=== PATIENT | male | born 1965 ===

== ENCOUNTER 2019-08-08 08:20 | Emergency (ER) | payer BC, OTHER ==
[2019-08-08] MEDS ORDERED: Sodium Chloride 0.9% 1,000 ML IV ONE (08:28)
[2019-08-08] MEDS ORDERED: Ondansetron 4 MG/2 ML SDV IVPUSH ONE (08:28)
[2019-08-08] MEDS ORDERED: Ketorolac 15 MG/ML SDV IVPUSH ONE (08:29)
[2019-08-08] MEDS ORDERED: Ondansetron 4 MG/2 ML SDV ONE (08:30)
[2019-08-08] MEDS ORDERED: Ketorolac 15 MG/ML SDV ONE (08:30)
--- NOTE | 2019-08-08 09:14 | CT ---
CT abdomen and pelvis Technique: Multiple axial sections were obtained from above the dome of the diaphragm inferiorly through the pubic symphysis. Intravenous and oral contrast not utilized. Study has been performed as a ureteral stone protocol. Findings: 5 mm obstructing stone is noted within the distal right ureter close to the UVJ. This stone causes proximal ureteral dilatation as well as dilatation of the collecting system of the right kidney. No additional ureteral calculi are seen. 2 small nonobstructing stones are seen within the left kidney measuring less than 5 mm. No other abnormal calcification are seen within the kidneys. Other findings: Visualized lung bases show nothing acute. Liver contains no focal parenchymal abnormality. Spleen appears within normal limits. Small hiatal hernia is noted. Adrenal glands show no nodule. Pancreas is within normal limits. Gallbladder contains no calcified gallstones. Aorta shows atherosclerotic change without aneurysm. No retroperitoneal adenopathy or mesenteric abnormalities are seen. Appendix is visualized and is normal in size. No pelvic mass or adenopathy is seen. No free fluid or inflammatory change is identified. Fat-containing umbilical hernia is incidentally noted. Mild diverticulosis is seen within the sigmoid colon without findings of diverticulitis. Bone window settings were reviewed which shows mild disc space narrowing scattered within the spine as well as scattered endplate osteophytes. Impression: 1. 5 mm obstructing stone within the distal right ureter close to the UVJ. This causes proximal hydronephrosis. 2. 2 small nonobstructing calculi within the left kidney. 3. Other findings believed to be incidental and nonacute as described above. Diagnostic code #3 This report was dictated in [place] Standard Time
[2019-08-08 09:23] LABS: CARBON DIOXIDE,CO2 28.2 mmol/L (21.0-32.0); POTASSIUM,K 3.6 mmol/L (3.5-5.1)
--- NOTE | 2019-08-08 09:40 | US ---
Testicular real-time images of the testicles were obtained. Comparison: No prior testicles show a homogeneous ultrasound appearance. Findings: No intratesticular abnormality is appreciated. Blood flow is noted within both testicles. Minimal hydroceles are seen on both sides. Epididymis appear normal. Measurements: Right testicle: 4.2 x 2.7 x 3.2 cm Left testicle: 4.1 x 2.1 x 2.8 cm Impression: 1. Small bilateral hydroceles. 2. Testicular ultrasound is otherwise unremarkable. Diagnostic code #2 This report was dictated in [place] Standard Time
--- NOTE | 2019-08-08 10:11 | EDM.PDOC ---
ED HPI GENERAL MEDICAL PROBLEM - General Chief Complaint: Flank Pain Stated Complaint: POSSIBLE KIDNEY STONE Time Seen by Provider: 08/08/19 08:29 Source of Information: Reports: Patient History Limitations: Reports: No Limitations - History of Present Illness INITIAL COMMENTS - FREE TEXT/NARRATIVE: 53-year-old gentleman history of nephrolithiasis presented to ER, right-sided flank pain radiating to the groin area. Started night of presentation to ER. No fever. No hematuria. Has been vomiting. No diarrhea no other associated symptoms. tried Motrin which did not help. Has had similar episodes in the past where he spontaneously passes a small stone but has not followed up formally. Duration: Hour(s): right flank Pain Score (Numeric/FACES): 10 - Related Data Allergies Allergy/AdvReac Type Severity Reaction Status Date / Time No Known Allergies Allergy Verified 08/08/19 08:36 Home Meds: Home Meds Ibuprofen 600 mg PO Q6HR PRN 10 Days #60 tablet 08/08/19 [Rx] Tamsulosin [Tamsulosin 24 Hr] 0.4 mg PO DAILY 5 Days #5 cap.er 08/08/19 [Rx] oxyCODONE HCl/Acetaminophen [Percocet 5-325 mg Tablet] 1 each PO Q6HR PRN 1 Days #6 tablet 08/08/19 [Rx] Past Medical History Cardiovascular History: Reports: Hypertension - Infectious Disease History Infectious Disease History: Reports: Chicken Pox - Past Surgical History HEENT Surgical History: Reports: Naso-Sinus Surgery Musculoskeletal Surgical History: Reports: Other (See Below) Other Musculoskeletal Surgeries/Procedures:: finger surgery Social & Family History - Family History Family Medical History: Noncontributory - Tobacco Use Smoking Status *Q: Never Smoker - Recreational Drug Use Recreational Drug Use: No ED ROS GENERAL - Review of Systems Review Of Systems: See Below Constitutional: Reports: No Symptoms HEENT: Reports: No Symptoms Respiratory: Reports: No Symptoms Cardiovascular: Reports: No Symptoms Endocrine: Reports: No Symptoms GI/Abdominal: Reports: Vomiting : Reports: Flank Pain, Pain Musculoskeletal: Reports: No Symptoms Skin: Reports: No Symptoms Neurological: Reports: No Symptoms Psychiatric: Reports: No Symptoms Hematologic/Lymphatic: Reports: No Symptoms Immunologic: Reports: No Symptoms ED EXAM, RENAL/ - Physical Exam Exam: See Below Exam Limited By: No Limitations General Appearance: Alert, WD/WN, No Apparent Distress Ears: Normal External Exam Nose: Normal Inspection Head: Atraumatic Neck: Normal Inspection Respiratory/Chest: No Respiratory Distress, Lungs Clear Cardiovascular: Normal Peripheral Pulses, Regular Rate, Rhythm GI/Abdominal: Soft, Non-Tender, Other (Right flank tenderness) (Male) Exam: No Hernia, Cremasteric Reflex. No: Testicular Mass, Testicular Tenderness (L), Testicular Tenderness (R) Back Exam: Normal Inspection, CVA Tenderness (R) Extremities: Normal Inspection Neurological: Alert, Oriented, Normal Gait Psychiatric: Normal Affect Skin Exam: Warm Course - Vital Signs Last Recorded V/S: Last Vital Signs Temp 96.9 F 08/08/19 10:24 Pulse 66 08/08/19 10:24 Resp 18 08/08/19 10:24 BP 169/94 H 08/08/19 10:24 Pulse Ox 96 08/08/19 10:24 - Orders/Labs/Meds Orders: Active Orders 24 hr Category Date Time Status Scrotal Duplex Ltd [US] Routine Exams 08/08/19 Taken Labs: Laboratory Tests 08/08/19 08/08/19 08/08/19 Range/Units 08:26 08:26 08:30 WBC 13.56 H (4.0-11.0) K/uL RBC 5.15 (4.50-5.90) M/uL Hgb 15.7 (13.0-17.0) g/dL Hct 46.4 (38.0-50.0) % MCV 90.1 (80.0-98.0) fL MCH 30.5 (27.0-32.0) pg MCHC 33.8 (31.0-37.0) g/dL RDW Std Deviation 42.0 (28.0-62.0) fl RDW Coeff of Mauricio 13 (11.0-15.0) % Plt Count 251 (150-400) K/uL MPV 9.10 (7.40-12.00) fL Neut % (Auto) 75.7 (48.0-80.0) % Lymph % (Auto) 17.0 (16.0-40.0) % Vance % (Auto) 6.3 (0.0-15.0) % Eos % (Auto) 0.6 (0.0-7.0) % Baso % (Auto) 0.4 (0.0-1.5) % Neut # (Auto) 10.3 H (1.4-5.7) K/uL Lymph # (Auto) 2.3 (0.6-2.4) K/uL Vance # (Auto) 0.9 H (0.0-0.8) K/uL Eos # (Auto) 0.1 (0.0-0.7) K/uL Baso # (Auto) 0.1 (0.0-0.1) K/uL Nucleated RBC % 0.0 /100WBC Nucleated RBCs # 0 K/uL Sodium 142 (136-148) mmol/L Potassium 3.6 (3.5-5.1) mmol/L Chloride 104 (98-107) mmol/L Carbon Dioxide 28.2 (21.0-32.0) mmol/L BUN 16 (7.0-18.0) mg/dL Creatinine 1.4 H (0.8-1.3) mg/dL Est Cr Clr Drug Dosing 66.08 mL/min Estimated GFR (MDRD) 53.4 ml/min Glucose 127 H (74-106) mg/dL Calcium 8.7 (8.5-10.1) mg/dL Total Bilirubin 0.6 (0.2-1.0) mg/dL AST 21 (15-37) IU/L ALT 35 (14-63) IU/L Alkaline Phosphatase 67 (46-116) U/L Total Protein 7.5 (6.4-8.2) g/dL Albumin 3.8 (3.4-5.0) g/dL Globulin 3.7 (2.6-4.0) g/dL Albumin/Globulin Ratio 1.0 (0.9-1.6) Lipase 130 (73-393) U/L Urine Color YELLOW Urine Appearance CLEAR Urine pH 6.0 (5.0-8.0) Ur Specific [place] >= 1.030 (1.001-1.035) Urine Protein TRACE H (NEGATIVE) mg/dL Urine Glucose (UA) NEGATIVE (NEGATIVE) mg/dL Urine Ketones NEGATIVE (NEGATIVE) mg/dL Urine Occult Blood LARGE H (NEGATIVE) Urine Nitrite NEGATIVE (NEGATIVE) Urine Bilirubin NEGATIVE (NEGATIVE) Urine Urobilinogen 0.2 (<2.0) EU/dL Ur Leukocyte Esterase NEGATIVE (NEGATIVE) Urine RBC 5-10 (0-2/HPF) Urine WBC 0-1 (0-5/HPF) Ur Epithelial Cells RARE (NONE-FEW) Urine Bacteria RARE (NEGATIVE) Urine Mucus LIGHT (NONE-MOD) Meds: Medications Discontinued Medications Generic Name Dose Route Start Last Admin Trade Name Freq PRN Reason Stop Dose Admin Sodium Chloride 1,000 mls @ 999 mls/hr 08/08/19 08:28 08/08/19 09:28 Normal Saline IV 08/08/19 09:28 999 mls/hr .Bolus ONE Administration Ketorolac Tromethamine 15 mg 08/08/19 08:29 08/08/19 08:30 Toradol IVPUSH 08/08/19 08:30 15 mg STAT ONE Administration Ketorolac Tromethamine Confirm 08/08/19 08:30 08/08/19 08:45 Toradol Administered 08/08/19 08:31 Not Given Dose 15 mg .ROUTE .STK-MED ONE Ondansetron HCl 4 mg 08/08/19 08:28 08/08/19 09:29 Zofran IVPUSH 08/08/19 08:29 4 mg ONETIME ONE Administration Ondansetron HCl Confirm 08/08/19 08:30 08/08/19 08:45 Zofran Administered 08/08/19 08:31 Not Given Dose 4 mg .ROUTE .STK-MED ONE - Re-Assessments/Exams Free Text/Narrative Re-Assessment/Exam: 08/08/19 10:09 Patient is afebrile nontoxic appearing. After medications improved markedly. Pain resolved. He has has not vomited. CAT scan showed a 5 mm stone at the UVJ junction. Findings were discussed with Dr. Castro from , patient will go to his clinic tomorrow afternoon. Return precautions were discussed with the patient, told him to come back to ER if he develops fever vomiting intractable pain or any concerns. UA did not show any signs of gross infection, and he is nontoxic-appearing. Departure - Departure Time of Disposition: 10:30 Disposition: Home, Self-Care 01 Clinical Impression: Nephrolithiasis - Discharge Information *PRESCRIPTION DRUG MONITORING PROGRAM REVIEWED*: Not Applicable *COPY OF PRESCRIPTION DRUG MONITORING REPORT IN PATIENT JASON: Not Applicable Prescriptions: Ibuprofen 600 mg PO Q6HR PRN 10 Days #60 tablet PRN Reason: Pain oxyCODONE HCl/Acetaminophen [Percocet 5-325 mg Tablet] 1 each PO Q6HR PRN 1 Days #6 tablet PRN Reason: Pain Tamsulosin [Tamsulosin 24 Hr] 0.4 mg PO DAILY 5 Days #5 cap.er Instructions: Kidney Stones, [id number] Referrals: PCP,None [Primary Care Provider] - Forms: ED Department Discharge Additional Instructions: The following information is given to patients seen in the emergency department who are being discharged to home. This information is to outline your options for follow-up care. We provide all patients seen in our emergency department with a follow-up referral. The need for follow-up, as well as the timing and circumstances, are variable depending upon the specifics of your emergency department visit. If you don't have a primary care physician on staff, we will provide you with a referral. We always advise you to contact your personal physician following an emergency department visit to inform them of the circumstance of the visit and for follow-up with them and/or the need for any referrals to a consulting specialist. The emergency department will also refer you to a specialist when appropriate. This referral assures that you have the opportunity for follow-up care with a specialist. All of these measure are taken in an effort to provide you with optimal care, which includes your follow-up. Under all circumstances we always encourage you to contact your private physician who remains a resource for coordinating your care. When calling for follow-up care, please make the office aware that this follow-up is from your recent emergency room visit. If for any reason you are refused follow-up, please contact the [facility] Emergency Department at and asked to speak to the emergency department charge nurse. Follow up with Dr Justin as directed tomorrow afternoon Return to ER if you develop intractable pain fever vomiting decreased urination or any concerns Sepsis Event Note - Evaluation Sepsis Screening Result: No Definite Risk - Focused Exam Vital Signs: Vital Signs Temp Pulse Resp BP Pulse Ox 08/08/19 10:24 96.9 F 66 18 169/94 H 96 08/08/19 08:25 97.3 F 67 20 167/112 H 97 Date Exam was Performed: 08/08/19 Time Exam was Performed: 10:29 - My Orders Last 24 Hours: My Active Orders 08/08/19 Scrotal Duplex Ltd [US] Routine - Assessment/Plan Last 24 Hours: My Active Orders 08/08/19 Scrotal Duplex Ltd [US] Routine
--- NOTE | 2019-08-08 10:58 | US ---
EXAM DATE: 08/08/19 PATIENT'S AGE: 53 Testicular real-time images of the testicles were obtained. Comparison: No prior testicles show a homogeneous ultrasound appearance. Findings: No intratesticular abnormality is appreciated. Blood flow is noted within both testicles. Minimal hydroceles are seen on both sides. Epididymis appear normal. Measurements: Right testicle: 4.2 x 2.7 x 3.2 cm Left testicle: 4.1 x 2.1 x 2.8 cm Impression: 1. Small bilateral hydroceles. 2. Testicular ultrasound is otherwise unremarkable. Diagnostic code #2 This report was dictated in [place] Standard Time Report Signed by Proxy. [facility]ITAL[facility]ell
== END 2019-08-08 10:38 | disposition home or self-care (01) ==
LOC: MW.ED 08:20
DX: N13.2 Hydronephrosis with renal and ureteral calculous obstruction (principal); I10 Essential (primary) hypertension; Z79.899 Other long term (current) drug therapy
CPT/HCPCS: 36415; 74176; 76870; 80053; 81001; 83690; 85025; 93976; 96361; 96374; 96375; 99284; J1885; J2405; J7030